=== PATIENT | female | born 1955 | race Caucasian/White ===

== ENCOUNTER 2019-06-14 17:23 | Emergency (ER) | payer OTHER ==
[~2019-06-14] VITALS: Ht 170.2 cm; Wt 82.6 kg
[2019-06-14] MEDS ORDERED: TORADOL 10 MG T10 MG PO (17:41)
[2019-06-14] MEDS ORDERED: VENLAFAXINE HCL75 M2 PO (17:42)
[2019-06-14] MEDS ORDERED: VENLAFAXINE HC150 MG PO (17:42)
[2019-06-14] MEDS ORDERED: ROPINIROLE HCL4 MG PO (17:43)
[2019-06-14] MEDS ORDERED: ZANAFLEX4 M1 PO (17:43)
[2019-06-14] MEDS ORDERED: LIPITOR20 MG PO (17:44)
[2019-06-14] MEDS ORDERED: ZANAFLEX4 M2 PO (17:44)
[2019-06-14] MEDS ORDERED: LEVOXYL100 MCG PO (17:44)
[2019-06-14 17:45] LABS: ABSOLUTE LYMPHOCYTES 1.5 thou/uL (0.8-5.3); ABSOLUTE MONOCYTES 0.3 thou/uL (0.0-1.2); BASOPHILS 0.5 %; EOSINOPHILS 0.4 %; HEMOGLOBIN 12.9 gm/dL (12.0-15.0); LYMPHOCYTES 39.8 %; MCH 29.7 pg (26.0-34.0); MCV 87.5 fL (80.0-100.0); MONOCYTES 8.3 %; MPV 8.7 fl. (7.2-11.1); NUCLEATED RBCS 0 /100WBC; PLATELET COUNT* 224 thou/uL (150-400); RBC 4.34 mil/uL (4.20-5.00); RDW-CV 13.8 % (10.5-14.5); WBC 3.9 thou/uL (4.0-11.0)
[2019-06-14] MEDS ORDERED: FROVA2.5 MG PO (17:45)
[2019-06-14] MEDS ORDERED: VITAMIN D400 UNIT PO (17:46)
[2019-06-14] MEDS ORDERED: MAGNESIUM250 M1 PO (17:46)
[2019-06-14 17:54] LABS: CALCIUM 9.6 mg/dL (8.5-10.1); CREATININE 0.8 mg/dL (0.6-1.3); POTASSIUM 3.9 mmol/L (3.5-5.1)
[2019-06-14 17:59] LABS: ALBUMIN 3.4 g/dL (3.4-5.0); TOTAL BILIRUBIN 0.3 mg/dL (<0.1-1.0); TOTAL PROTEIN 6.9 g/dL (6.4-8.2)
[2019-06-14 18:04] LABS: ALCOHOL < 10 mg/dL (<10); SALICYLATE < 2.8 mg/dL (2.8-20.0)
[2019-06-14 18:06] LABS: ACETAMINOPHEN < 2 ug/mL (10-30)
[2019-06-14] MEDS ORDERED: OMEPRAZOLE40 MG PO (18:34)
[2019-06-14] MEDS ORDERED: ERGOCALCIF50000 UNIT PO (18:35)
[2019-06-14] MEDS ORDERED: ROPINIROLE HCL2 MG PO (18:36)
[2019-06-14] MEDS ORDERED: ASPIR 8181 MG PO (18:37)
[2019-06-14 19:05] LABS: URINE BILIRUBIN NEGATIVE (Negative); URINE BLOOD NEGATIVE (Negative); URINE CLARITY CLEAR; URINE COLOR YELLOW; URINE GLUCOSE-RANDOM NEGATIVE (Negative); URINE KETONES NEGATIVE (Negative); URINE LEUKOCYTES-REFLEX NEGATIVE (Negative); URINE NITRITE-REFLEX NEGATIVE (Negative); URINE PROTEIN NEGATIVE (Negative); URINE SPECIFIC GRAVITY 1.025 (1.005-1.030); URINE UROBILINOGEN 0.2 E.U./dl (0.2-1.0)
[2019-06-14 19:12] LABS: AMP/METHAMP Negative (Negative); BARBITURATES Negative (Negative); BENZODIAZEPINES Negative (Negative); COCAINE Negative (Negative); METHADONE Negative (Negative); OPIATES Negative (Negative); PCP Negative (Negative); THC Negative (Negative)
[2019-06-15 18:04] VITALS: BP 107/93
== END 2019-06-15 18:05 ==
LOC: M.ERS 17:23
PROVIDERS: Family Medicine
DX: T39.8X2A Poisoning by other nonopioid analgesics and antipyretics, not elsewhere classified, intentional self-harm, initial encounter (principal); Z79.899 Other long term (current) drug therapy; Z88.5 Allergy status to narcotic agent; Z88.8 Allergy status to other drugs, medicaments and biological substances; Y92.89 Other specified places as the place of occurrence of the external cause